=== PATIENT | female | born 1955 | race Caucasian/White ===

== ENCOUNTER → 2018-04-10 | Outpatient (CLI) | payer BC ==
--- NOTE | 2018-04-10 13:17 | KCIC ---
EXAM: Bilateral hands, 3 views. HISTORY: Pain. COMPARISON: None. FINDINGS: 3 views of the bilateral hands are obtained. There is no fracture, dislocation or subluxation. There is mild left first carpometacarpal joint subchondral sclerosis and spurring. There is a chronic corticated ossicle along the dorsal aspect of the right second distal interphalangeal joint, likely the sequela of remote injury. IMPRESSION: Mild left first carpometacarpal osteoarthritis. Electronically signed by: Radha Torrez MD (04/10/2018 1:14 PM) [facility]
== END | disposition home or self-care (01) ==
LOC: KCIC 12:23
PROVIDERS: ATTEND Internal Medicine Rheumatology
DX: M18.12 Unilateral primary osteoarthritis of first carpometacarpal joint, left hand (principal)
CPT/HCPCS: 73130